=== PATIENT | male | born 1980 | race Caucasian/White ===

== ENCOUNTER 2021-01-15 13:54 | Emergency (ER) | payer OTHER ==
[~2021-01-15] VITALS: Ht 175.3 cm; Wt 115.7 kg
[2021-01-15 14:13] VITALS: BP 111/76
== END 2021-01-15 15:23 | disposition left against medical advice (07) ==
LOC: ER 13:54
DX: M79.671 Pain in right foot (principal); Z53.21 Procedure and treatment not carried out due to patient leaving prior to being seen by health care provider